=== PATIENT | male | born 1995 | race Caucasian/White ===

== ENCOUNTER 2016-04-19 23:35 | Emergency (ER) | payer BC ==
[2016-04-19 23:49] VITALS: BP 137/79
== END 2016-04-20 00:47 | disposition left against medical advice (07) ==
LOC: ED 23:35
DX: R20.0 Anesthesia of skin (principal); Z53.21 Procedure and treatment not carried out due to patient leaving prior to being seen by health care provider

== ENCOUNTER → 2017-08-21 19:22 | Emergency (ER) | payer BC ==
[~2017-08-21 19:22] MED LIST: cloNIDine TAB* 0.1 MG PO ONE; hydrOXYzine HCL TAB* 25 MG PO ONE
[2017-08-21 21:02] VITALS: BP 130/80
--- NOTE | 2017-09-07 11:15 | ED ---
Raul Gates Gabriel, scribed for Chad Murphy MD on 08/21/17 at 1951 . Substance Abuse/Use - HPI Summary HPI Summary: This patient is a 22 year old M presenting to [facility] accompanied by his mother requesting heroin detox. Pt states his last use was 90 min SKI GUIDE and that he used to inject daily. Pt did stop using for about a month and just relapsed. Patient denies SI. He is requesting a [facility] referral. - History Of Current Complaint Chief Complaint: EDOverdose Stated Complaint: POSSIBLE OVERDOSE Time Seen by Provider: 08/21/17 19:48 Hx Obtained From: Patient Ingestion History: Type/Name Of Drug - heroin Overdose Characteristics: IV Timing Of Abuse: Recent Cessation For A Period Of Severity Initially: Moderate Severity Currently: Moderate Character: Stuporous Associated Signs And Symptoms: Negative - SI Related Hx: Drug/Alcohol Last Used @ - 90 mion SKI GUIDE - Allergies/Home Medications Allergies/Adverse Reactions: Allergies Allergy/AdvReac Type Severity Reaction Status Date / Time haloperidol [From Haldol] Allergy See Comment Verified 08/21/17 19:28 Bees Allergy Intermediate Swelling Uncoded 08/21/17 19:28 Home Medications: Home Medications Cetirizine* [ZyrTEC 10 MG TAB*] 10 mg PO DAILY 08/21/17 [History Confirmed 08/21] PMH/Surg Hx/FS Hx/Imm Hx Endocrine/Hematology History: Denies: Hx Anticoagulant Therapy Cardiovascular History: Denies: Hx Congenital Heart Disease Respiratory History: Denies: Hx Chronic Obstructive Pulmonary Disease (COPD) History: Reports: Hx Kidney Stones, Other Problems/Disorders - Hx of ascended testicle Psychiatric History: Reports: Hx of Violent Episodes Against Others Denies: Hx Eating Disorder - Surgical History Surgery Procedure, Year, and Place: UNDECENDED TESTICLE Infectious Disease History: No Infectious Disease History: Denies: Traveled Outside the [place] in Last 30 Days - Family History Known Family History: Positive: Cardiac Disease, Other - Alcohol abuse, anxiety - Social History Alcohol Use: Occasionally Alcohol Amount: unk Hx Substance Use: Yes Substance Use Type: Reports: Heroin, Marijuana Substance Use Comment - Amount & Last Used: unk Hx Tobacco Use: Yes Smoking Status (MU): Current Every Day Smoker Type: Cigarettes Review of Systems Positive: Other - drug use . Negative: Fever Positive: Slurred Speech Positive: Other - NEGATIVE SI All Other Systems Reviewed And Are Negative: Yes Physical Exam - Summary Physical Exam Summary: Appearance: Well-appearing, no distress, Well-nourished, appears sleepy Skin: Warm, color reflects adequate perfusion Head: Normal Head/Face inspection Eyes: Conjunctiva clear, pupils are 1 plus and reactive to light ENT: Normal inspection Neck: Supple, no nodes, no JVD. Respiratory: Lungs clear, Normal breath sounds, no respiratory distress Cardio: RRR, No murmur, pulses normal, brisk capillary refill Abdomen: soft, nontender, no guarding, no rebound Bowel sounds: present Musculoskeletal: Strength Intact/ ROM intact. No calf tenderness. No edema. Neuro: Alert, muscle tone normal, facial symmetry, speech normal, sensory/motor intact Psychological: Normal Triage Information Reviewed: Yes Vital Signs On Initial Exam: Initial Vitals Temp Pulse Resp BP Pulse Ox 98.0 F 101 16 124/88 95 08/21/17 19:24 08/21/17 19:24 08/21/17 19:24 08/21/17 19:24 08/21/17 19:24 Vital Signs Reviewed: Yes Diagnostics - Vital Signs Vital Signs Temp Pulse Resp BP Pulse Ox 08/21/17 19:24 98.0 F 101 16 124/88 95 - Laboratory Lab Statement: Any lab studies that have been ordered have been reviewed, and results considered in the medical decision making process. Course/Dx - Course Course Of Treatment: pt awake and alert; pt with no evidence of acute withdrawl. Pt and family given resources for outopatient detox. Pt continues to deny any SI, or HI. - Diagnoses Differential Diagnosis/HQI/PQRI: Positive: Acute Psychosis, Alcohol Abuse, Alcohol Withdrawal, Bipolar Disorder, Drug Abuse, Drug Withdrawal, Metabolic Disorder Provider Diagnoses: Opiate abuse, continuous Discharge - Sign-Out/Discharge Documenting (check all that apply): Discharge/Admit/Transfer - Discharge Plan Condition: Stable Disposition: HOME Prescriptions: hydrOXYzine HCL TAB* [Atarax 25 MG TAB*] 25 mg PO QID PRN #10 tab PRN Reason: Agitation/Anxiety/Insomnia Ibuprofen TAB* [Motrin TAB* 600 MG] 600 mg PO Q6H PRN #12 tab PRN Reason: Pain Promethazine TAB* [Phenergan TAB*] 25 mg PO Q6H PRN #12 tab PRN Reason: Nausea Patient Education Materials: Narcotic Abuse (ED) Referrals: No Primary Care Phys,NOPCP [Primary Care Provider] - [facility],. [Z.BUSINESS, APPLICATION, OTHER] - - Billing Disposition and Condition Condition: STABLE Disposition: Home The documentation as recorded by the Raul byrd Gabriel accurately reflects the service I personally performed and the decisions made by me, Chad Murphy MD.
== END | disposition home or self-care (01) ==
LOC: ED 19:22
DX: F11.20 Opioid dependence, uncomplicated (principal); Z88.8 Allergy status to other drugs, medicaments and biological substances; Z79.899 Other long term (current) drug therapy; F17.210 Nicotine dependence, cigarettes, uncomplicated
CPT/HCPCS: 99282; A9270-GY

== ENCOUNTER 2021-08-09 10:17 | Inpatient (IN) ==
[2021-08-09] MEDS ORDERED: NS 0.9% 1000 ml BAG 1,000 ML IV ONE (10:38)
[2021-08-09 12:19] LABS: ABS Basophils 0.1 10^3/ul (0-0.2); ABS Eosinophils 0.1 10^3/ul (0-0.6); ABS Lymphocytes 1.6 10^3/ul (1.0-4.8); ABS Monocytes 0.8 10^3/ul (0-0.8); ABS Neutrophils 5.5 10^3/ul (1.5-7.7); Eosinophil % 1.7 %; Hematocrit 40 % (42-52); Hemoglobin 13.6 g/dL (14.0-18.0); Lymphocyte % 19.4 %; Mean Corpuscular HGB Conc 34 g/dL (31-36); Mean Corpuscular Hemoglobin 28 pg (27-31); Mean Corpuscular Volume 84 fL (80-94); Mean Platelet Volume 8.3 fL (7.4-10.4); Platelet Count 221 10^3/uL (150-450); Red Cell Distribution Width 13 % (10-15)
[2021-08-09 12:45] LABS: ALT 84 U/L (7-52); AST 60 U/L (13-39); Acetaminophen < 15 mcg/mL; Albumin 4.2 g/dL (3.2-5.2); Albumin/Globulin Ratio 1.2 (1-3); Alcohol, S < 13 mg/dL (<13); Alkaline Phosphatase 87 U/L (35-149); Anion Gap 6 mmol/L (2-11); Blood Urea Nitrogen 17 mg/dL (6-24); CO2 Carbon Dioxide 29 mmol/L (22-32); Calcium 9.6 mg/dL (8.6-10.3); Chloride 102 mmol/L (101-111); Creatine Kinase 421 U/L (10-223); Globulin 3.4 g/dL (2-4); Glucose 85 mg/dL (70-100); Lipase 11 U/L (11.0-82.0); Magnesium 1.8 mg/dL (1.9-2.7); Potassium 3.9 mmol/L (3.5-5.0); Salicylate < 2.50 mg/dL (<30); Sodium 137 mmol/L (135-145); Total Protein 7.6 g/dL (6.4-8.9); eGFR CKD-EPI 112.5 (>60)
[2021-08-09] MEDS ORDERED: Lorazepam PYXIS KEY PRN ×2 (14:59→18:28)
[2021-08-09] MEDS ORDERED: LORazepam 2 mg VIAL 1 ml IM ONE ×2 (14:59→18:28)
[2021-08-09] MEDS ORDERED: Haloperidol 5 mg/ml SDV IV/IM 5 MG/ML AMP IM ONE (14:59)
[2021-08-09 18:17] LABS: Urine Appearance Clear; Urine Bilirubin Negative (Negative); Urine Blood Negative (Negative); Urine Color Yellow; Urine Glucose Negative (Negative); Urine Ketones Negative (Negative); Urine Nitrite Negative (Negative); Urine Protein 1+(30 mg/dL) (Negative); Urine Specific Gravity 1.018 (1.002-1.030); Urine Urobilinogen Negative (Negative)
[2021-08-09 18:27] LABS: Urine Bacteria Absent (Absent); Urine Red Blood Cell Trace(0-2/hpf) (Absent); Urine White Blood Cell Trace(0-5/hpf) (Absent)
[2021-08-09] MEDS ORDERED: LORazepam 2 mg VIAL 1 ml ONE (18:27)
[2021-08-09] MEDS ORDERED: OLANZapine 5 mg TAB *ODT PO PRN (18:57)
[2021-08-09 19:02] LABS: Urine Benzodiazepine Screen None Detected (None Detect); Urine Cannabinoids Screen Presumptive Positive (None Detect); Urine Opiates Screen None Detected (None Detect)
[2021-08-09] MEDS ORDERED: Al Hydrox/Mg Hydrox/Simet LIQ 30 ML UDC PO PRN (19:20)
[2021-08-09] MEDS ORDERED: Nicotine GUM 2MG FRUIT FLAVOR PO PRN (20:00)
[2021-08-10 08:41] LABS: HDL Cholesterol 37.5 mg/dL
[2021-08-10] MEDS: Vitamin THERAPEUTIC TAB PO SCH (10:31)
[2021-08-10] MEDS: Nicotine PATCH 21 MG/24 HR PATCH TRANSDERM SCH (10:31)
[2021-08-11 08:05] VITALS: BP 122/71
[2021-08-11] MEDS: Nicotine PATCH 21 MG/24 HR PATCH TRANSDERM SCH (11:17)
[2021-08-11] MEDS: Vitamin THERAPEUTIC TAB PO SCH (11:17)
[2021-08-14 09:01] LABS: Anaplasma phagocytophilum Negative (Negative); B. miyamotoi PCR, B Negative (Negative); Babesia divergens/MO-1 Negative (Negative); Babesia ducani Negative (Negative); Ehrlichia chaffeensis Negative (Negative); Ehrlichia ewingii/canis Negative (Negative); Ehrlichia muris eauclairensis Negative (Negative)
== END 2021-08-11 14:02 | DRG 773 ==
LOC: ED 10:17 → BSU 16:00
PROVIDERS: ADMIT Psychiatry & Neurology Psychiatry; ATTEND Student in an Organized Health Care Education/Training Program